=== PATIENT | male | born 1990 | race Caucasian/White ===

== ENCOUNTER 2018-02-11 06:57 | Emergency (ER) | payer MEDICAID ==
[~2018-02-11] VITALS: Ht 182.9 cm; Wt 77.3 kg
[2018-02-11] MEDS ORDERED: TETanus/Pertussis (Acell)/Diphther VAC/PF (Tdap-Adult) 0.5ml syringe IM ONE (07:35)
[2018-02-11] MEDS ORDERED: bacitracin 15gm ointment TP ONE (07:35)
[2018-02-11 08:07] VITALS: BP 125/89
== END 2018-02-11 08:18 | disposition home or self-care (01) ==
LOC: ER 06:57
DX: S06.0X0A Concussion without loss of consciousness, initial encounter (principal); S80.02XA Contusion of left knee, initial encounter; S00.83XA Contusion of other part of head, initial encounter; K21.9 Gastro-esophageal reflux disease without esophagitis; Z56.0 Unemployment, unspecified; Z59.0 Homelessness; Y04.8XXA Assault by other bodily force, initial encounter; Y93.89 Activity, other specified; Y92.89 Other specified places as the place of occurrence of the external cause; Y99.8 Other external cause status
CPT/HCPCS: 90471; 90715; 99283